=== PATIENT | female | born 1965 | race Caucasian/White ===

== ENCOUNTER 2019-03-07 22:23 | Inpatient (IN) ==
[2019-03-08] MEDS ORDERED: Naloxone 0.4 MG/ML INJ IVP PRN (04:27)
[2019-03-08] MEDS ORDERED: Melatonin 3 MG TABLET PO PRN (04:27)
[2019-03-08 06:13] LABS: Hematocrit 37.1 % (35.3-44.9); Hemoglobin 12.3 g/dL (11.5-15.4); Mean Corpuscular HGB Conc 33.2 g/dL (31.6-35.5); Mean Corpuscular Hemoglobin 29.9 pg (28.0-33.3); Mean Platelet Volume 10.1 fL (9.4-12.4); Platelet Count 281 K/mcL (140-400); Red Blood Count 4.12 M/mcL (3.82-4.97); Red Cell Distribution Width 13.6 % (11.5-14.5); White Blood Count 6.5 K/mcL (4.3-11.1)
[2019-03-08 06:38] LABS: BUN/Creatinine Ratio 22 (6-26); Blood Urea Nitrogen 15 mg/dL (6-20); Calcium 8.8 mg/dL (8.6-10.3); Carbon Dioxide 27 mEq/L (23-29); Chloride 105 mEq/L (98-107); Glucose 105 mg/dL (70-105); Osmolality,Calculated 299 (280-300); Potassium 3.5 mEq/L (3.5-5.1); Sodium 144 mEq/L (136-145); eGFR For African Americans > 60 (> 60); eGFR For Non-African Americans > 60 (> 60)
[2019-03-08 06:39] LABS: Troponin I < 0.03 ng/mL (< 0.04)
[2019-03-08] MEDS: *HR* Rivaroxaban 10 MG TABLET PO SCH (12:07)
[2019-03-08] MEDS: *HR* LORazepam 1 MG TABLET PO PRN (12:09)
[2019-03-08 16:50] LABS: Adenovirus Not Detected (Not Detect); Bordetella Pertussis Not Detected (Not Detect); Chlamydophila pneumoniae Not Detected (Not Detect); Coronavirus 229E Not Detected (Not Detect); Coronavirus HKU1 Not Detected (Not Detect); Coronavirus NL63 Not Detected (Not Detect); Coronavirus OC43 Not Detected (Not Detect); Human Metapneumovirus Not Detected (Not Detect); Human Rhinovirus/Enterovirus Not Detected (Not Detect); Influenza A Subtype 2009 H1 Not Detected (Not Detect); Influenza B Not Detected (Not Detect); Mycoplasma pneumoniae Not Detected (Not Detect); Parainfluenza Virus 1 Not Detected (Not Detect); Parainfluenza Virus 2 Not Detected (Not Detect); Parainfluenza Virus 3 Not Detected (Not Detect); Parainfluenza Virus 4 Not Detected (Not Detect); Respiratory Syncytial Virus Not Detected (Not Detect)
[2019-03-08] MEDS ORDERED: *HR* Rivaroxaban 10 MG TABLET PO SCH ×2 (17:00)
[2019-03-08] MEDS ORDERED: Acetaminophen 325 MG TABLET PO ONE (21:50)
[2019-03-08] MEDS: Melatonin 3 MG TABLET PO SCH (22:01)
[2019-03-09 05:56] LABS: BUN/Creatinine Ratio 35 (6-26); Blood Urea Nitrogen 19 mg/dL (6-20); Calcium 8.6 mg/dL (8.6-10.3); Carbon Dioxide 21 mEq/L (23-29); Chloride 108 mEq/L (98-107); Glucose 94 mg/dL (70-105); Magnesium 2.1 mg/dL (1.6-2.6); Osmolality,Calculated 288 (280-300); Potassium 3.7 mEq/L (3.5-5.1); Sodium 138 mEq/L (136-145); eGFR For African Americans > 60 (> 60); eGFR For Non-African Americans > 60 (> 60)
[2019-03-09] MEDS ORDERED: Regadenoson 0.4 MG/5 ML SYRINGE IVP ONE (06:21)
[2019-03-09] MEDS ORDERED: NON-FORMULARY MEDICATION 1 EACH EACH (Rivaroxaban [Xarelto] 20 MG) PO SCH (09:00)
[2019-03-09] MEDS: *HR* Rivaroxaban 10 MG TABLET PO SCH ×2 (10:07→17:22)
[2019-03-09] MEDS: Acetaminophen 325 MG TABLET PO PRN (15:27)
[2019-03-09] MEDS: Lisinopril 20 MG TABLET PO SCH (17:22)
[2019-03-09] MEDS: carvediloL 6.25 MG TABLET PO SCH (17:22)
[2019-03-09] MEDS: *HR* LORazepam 1 MG TABLET PO PRN (22:40)
[2019-03-09] MEDS: Melatonin 3 MG TABLET PO SCH (22:41)
[2019-03-10] MEDS: carvediloL 6.25 MG TABLET PO SCH ×2 (08:03→16:20)
[2019-03-10] MEDS: amLODIPine 5 MG TABLET PO SCH (09:15)
[2019-03-10] MEDS ORDERED: hydrOXYzine pamoate 25 MG CAPSULE PO PRN (11:01)
[2019-03-10] MEDS: *HR* Rivaroxaban 10 MG TABLET PO SCH (16:20)
[2019-03-10] MEDS: Lisinopril 20 MG TABLET PO SCH (18:34)
[2019-03-10] MEDS: Melatonin 3 MG TABLET PO SCH (22:32)
[2019-03-11 01:27] LABS: Hematocrit 34.2 % (35.3-44.9); Hemoglobin 11.2 g/dL (11.5-15.4); Mean Corpuscular HGB Conc 32.7 g/dL (31.6-35.5); Mean Corpuscular Hemoglobin 29.8 pg (28.0-33.3); Mean Platelet Volume 10.8 fL (9.4-12.4); Platelet Count 245 K/mcL (140-400); Red Blood Count 3.76 M/mcL (3.82-4.97); Red Cell Distribution Width 13.2 % (11.5-14.5); White Blood Count 8.4 K/mcL (4.3-11.1)
[2019-03-11 01:42] LABS: BUN/Creatinine Ratio 21 (6-26); Blood Urea Nitrogen 13 mg/dL (6-20); Calcium 8.8 mg/dL (8.6-10.3); Carbon Dioxide 25 mEq/L (23-29); Chloride 107 mEq/L (98-107); Glucose 88 mg/dL (70-105); Osmolality,Calculated 286 (280-300); Potassium 3.7 mEq/L (3.5-5.1); Sodium 138 mEq/L (136-145); eGFR For African Americans > 60 (> 60); eGFR For Non-African Americans > 60 (> 60)
[2019-03-11] MEDS: carvediloL 6.25 MG TABLET PO SCH (08:20)
[2019-03-11] MEDS: amLODIPine 5 MG TABLET PO SCH (08:20)
[2019-03-11] MEDS: Acetaminophen 325 MG TABLET PO PRN (08:23)
[2019-03-11 10:28] VITALS: BP 140/61
== END 2019-03-11 12:04 | disposition home or self-care (01) | DRG 310 ==
LOC: 2ANU → SUATTDRO 03-08 01:15
PROVIDERS: ADMIT Family Medicine; ATTEND Internal Medicine

== ENCOUNTER 2019-11-09 00:48 | Observation (INO) ==
[2019-11-09] MEDS ORDERED: *HR* Heparin 5,000 UNIT/ML VIAL IVP ONE (01:18)
[2019-11-09] MEDS ORDERED: Aspirin 81 MG TAB.CHEW PO ONE (01:18)
[2019-11-09] MEDS ORDERED: *HR* Heparin 5,000 UNIT/ML VIAL IVP PRN ×2 (01:18)
[2019-11-09] MEDS ORDERED: Heparin 25,000UNIT/250ML 1/2NS 25,000 UNIT/250 ML IV.SOLN IVC SCH ×2 (01:30→02:15)
[2019-11-09] MEDS ORDERED: DilTIAZem 50 MG/50 ML IV.SOLN IVC SCH (01:30)
[2019-11-09] MEDS ORDERED: Isovue-370 500 ML BOTTLE IVP ONE (01:38)
[2019-11-09 01:59] LABS: Eosinophils # 0.2 K/mcL (0.0-0.6); Hematocrit 36.1 % (35.3-44.9); Hemoglobin 11.7 g/dL (11.5-15.4); INR 1.7; Immature Granulocytes % 0.1 % (0-4); Lymphocytes # 1.9 K/mcL (0.6-4.6); Lymphocytes % 24.3 %; Mean Corpuscular HGB Conc 32.4 g/dL (31.6-35.5); Mean Corpuscular Volume 89.4 fL (83.0-100.0); Monocytes # 0.5 K/mcL (0.0-1.3); Monocytes % 6.8 %; Neutrophils # 5.3 K/mcL (1.6-8.9); Platelet Count 260 K/mcL (140-400); Prothrombin Time 19.5 Seconds (9.4-12.1); Red Blood Count 4.04 M/mcL (3.82-4.97); Red Cell Distribution Width 13.5 % (11.5-14.5); Segmented Neutrophils % 66.8 %
[2019-11-09 02:01] LABS: Activated Partial Thrombo Time 76.4 Seconds (26.0-36.0)
[2019-11-09 02:06] LABS: Heparin anti-factor XA UFH 1.39 IU/mL (0.30-0.70)
[2019-11-09 02:13] LABS: Alanine Aminotransferase 15 Units/L (7-52); Albumin 4.1 g/dL (3.5-5.7); Albumin/Globulin Ratio 1.4 (1.1-2.2); Alkaline Phosphatase 114 Units/L (34-104); Aspartate Amino Transferase 14 Units/L (13-39); BUN/Creatinine Ratio 23 (6-26); Bilirubin,Direct 0.1 mg/dL (0.0-0.2); Bilirubin,Indirect 0.4 mg/dL (0.0-1.0); Bilirubin,Total 0.5 mg/dL (0.3-1.0); Blood Urea Nitrogen 15 mg/dL (6-20); Carbon Dioxide 26 mEq/L (23-29); Chloride 107 mEq/L (98-107); Globulin 2.9 g/dL (2.4-3.5); Glucose 141 mg/dL (70-105); Lipase 38 Units/L (11-82); Osmolality,Calculated 297 (280-300); Potassium 3.4 mEq/L (3.5-5.1); Sodium 142 mEq/L (136-145); eGFR For African Americans > 60 (> 60); eGFR For Non-African Americans > 60 (> 60)
[2019-11-09 02:14] LABS: Troponin I < 0.03 ng/mL (< 0.04)
[2019-11-09] MEDS ORDERED: Morphine Sulfate 2 MG/ML SYRINGE IVP ONE (02:20)
[2019-11-09] MEDS ORDERED: Ondansetron 4 MG/2 ML VIAL IVP PRN (03:53)
[2019-11-09] MEDS ORDERED: Naloxone 0.4 MG/ML INJ IVP PRN (03:53)
[2019-11-09] MEDS ORDERED: Perflutren Lipid Microsphere 1.3 ML in 0.9 % Sodium Chloride 8.7 ML IVP PRN (08:20)
[2019-11-09] MEDS: Pantoprazole 40 MG VIAL IVP SCH (08:39)
[2019-11-09] MEDS: hydroCHLOROthiazide 25 MG TABLET PO SCH (08:39)
[2019-11-09] MEDS ORDERED: carvediloL 6.25 MG TABLET PO ONE (10:15)
[2019-11-09] MEDS ORDERED: Acetaminophen 325 MG TABLET PO PRN (15:15)
[2019-11-09] MEDS: carvediloL 6.25 MG TABLET PO SCH (16:46)
[2019-11-09] MEDS ORDERED: carvediloL 6.25 MG TABLET PO SCH (17:00)
[2019-11-09] MEDS ORDERED: lisinopriL 20 MG TABLET PO SCH (18:00)
[2019-11-09] MEDS: *HR* LORazepam 1 MG TABLET PO PRN (18:40)
[2019-11-09] MEDS ORDERED: Melatonin 3 MG TABLET PO ONE (20:47)
[2019-11-10 03:40] LABS: Chol/HDL Ratio 2.7 (0-4.9)
[2019-11-10] MEDS: *HR* LORazepam 1 MG TABLET PO PRN (07:11)
[2019-11-10] MEDS: hydroCHLOROthiazide 25 MG TABLET PO SCH (07:47)
[2019-11-10] MEDS: Pantoprazole 40 MG VIAL IVP SCH (07:48)
[2019-11-10] MEDS: carvediloL 6.25 MG TABLET PO SCH ×2 (07:48→15:52)
[2019-11-10 08:51] LABS: Estimated Average Glucose 114 mg/dl
[2019-11-10] MEDS: amLODIPine 5 MG TABLET PO SCH ×2 (08:59→09:49)
[2019-11-10 09:04] LABS: BUN/Creatinine Ratio 19 (6-26); Blood Urea Nitrogen 13 mg/dL (6-20); Calcium 8.7 mg/dL (8.6-10.3); Carbon Dioxide 27 mEq/L (23-29); Chloride 105 mEq/L (98-107); Glucose 106 mg/dL (70-105); Osmolality,Calculated 289 (280-300); Potassium 3.7 mEq/L (3.5-5.1); Sodium 139 mEq/L (136-145); eGFR For African Americans > 60 (> 60); eGFR For Non-African Americans > 60 (> 60)
[2019-11-10] MEDS ORDERED: 0.9 % Sodium Chloride 2,000 ML ONE (11:33)
[2019-11-10] MEDS ORDERED: Heparin 1,000 UNITS/500 mL 500 ML ONE (11:33)
[2019-11-10] MEDS ORDERED: ISOVUE-370 200 ML INFUS..BTL ONE (11:34)
[2019-11-10] MEDS ORDERED: Nitroglycerin 1,000 MCG/10 ML VIAL IV ONE (11:34)
[2019-11-10] MEDS ORDERED: *HR* Heparin 10,000 UNIT/10 ML VIAL ONE (11:34)
[2019-11-10] MEDS ORDERED: *HR* Midazolam HCl 2 MG/2 ML VIAL ONE ×2 (12:00→12:14)
[2019-11-10] MEDS ORDERED: *HR* FentaNYL (PF) 100 MCG/2 ML VIAL ONE (12:00)
[2019-11-10] MEDS ORDERED: Perflutren Lipid Microsphere 1.3 ML in 0.9 % Sodium Chloride 8.7 ML IVP PRN (12:43)
[2019-11-10 14:52] VITALS: BP 138/79
[2019-11-10] MEDS ORDERED: Furosemide 20 MG/2 ML VIAL IVP ONE (15:21)
[2019-11-10] MEDS ORDERED: *HR* Rivaroxaban 10 MG TABLET PO SCH (17:00)
[2019-11-11] MEDS ORDERED: Aspirin 81 MG TAB.CHEW PO SCH (09:00)
== END 2019-11-10 16:43 | disposition home or self-care (01) ==
LOC: EMEROOARM 00:48 → 3BNU 00:48 → SUATTDRO 03:23 → 3BNU 03:47
PROVIDERS: ADMIT Internal Medicine; ATTEND Internal Medicine

== ENCOUNTER 2020-01-23 07:18 | Observation (INO) ==
[2020-01-23] MEDS ORDERED: 0.9 % Sodium Chloride 1,000 ML IVC SCH (07:45)
[2020-01-23] MEDS ORDERED: Protamine Sulfate 50 MG/5 ML VIAL IVP ONE (08:21)
[2020-01-23] MEDS ORDERED: ISOVUE-370 200 ML INFUS..BTL ONE (08:22)
[2020-01-23] MEDS ORDERED: *HR* Heparin 10,000 UNIT/10 ML VIAL ONE (08:22)
[2020-01-23] MEDS ORDERED: Heparin 1,000 UNITS/500 mL 2,000 ML ONE (08:22)
[2020-01-23] MEDS ORDERED: 0.9 % Sodium Chloride 2,000 ML ONE (08:22)
[2020-01-23] MEDS ORDERED: Albuterol 2.5 MG/3 ML NEBULIZER IH PRN (08:26)
[2020-01-23] MEDS ORDERED: *HR* OxyCODONE Immed Rel 5 MG TABLET PO PRN (08:26)
[2020-01-23] MEDS ORDERED: Promethazine 6.25 MG in Water for inj. (sterile) 20 ML IVPB PRN (08:26)
[2020-01-23] MEDS ORDERED: *HR* Metoprolol 5 MG/5 ML VIAL IVP PRN (08:26)
[2020-01-23] MEDS ORDERED: *HR* FentaNYL (PF) 100 MCG/2 ML VIAL IVP PRN (08:26)
[2020-01-23] MEDS ORDERED: Ondansetron 4 MG/2 ML VIAL IVP PRN (08:26)
[2020-01-23] MEDS ORDERED: *HR* Vasopressin 20 UNIT/ML VIAL ONE (08:38)
[2020-01-23] MEDS ORDERED: *HR* FentaNYL (PF) 100 MCG/2 ML VIAL ONE (08:39)
[2020-01-23] MEDS ORDERED: Heparin 1,000 UNITS/500 mL 500 ML ONE (09:29)
[2020-01-23] MEDS ORDERED: Naloxone 0.4 MG/ML INJ IVP PRN (12:26)
[2020-01-23] MEDS ORDERED: *HR* LORazepam 1 MG TABLET PO PRN (12:27)
[2020-01-23] MEDS ORDERED: Lidocaine -MPF 2% 5 ML VIAL SQ ONE (12:40)
[2020-01-23] MEDS ORDERED: Lidocaine -MPF 4% 5 ML AMPUL TP ONE (12:40)
[2020-01-23] MEDS ORDERED: Ondansetron 4 MG/2 ML VIAL IVP ONE (12:40)
[2020-01-23] MEDS ORDERED: *HR* Succinylcholine 200 MG/10 ML VIAL IVP ONE (12:40)
[2020-01-23] MEDS ORDERED: *HR* Propofol 200 MG/20 ML VIAL IVP ONE (12:40)
[2020-01-23] MEDS ORDERED: *HR* Rocuronium Bromide 50 MG/5 ML VIAL IVP ONE (12:40)
[2020-01-23] MEDS ORDERED: *HR* Phenylephrine 10 MG/ML VIAL IVC ONE (12:40)
[2020-01-23] MEDS: carvediloL 25 MG TABLET PO SCH (16:32)
[2020-01-23] MEDS ORDERED: lisinopriL 20 MG TABLET PO SCH (18:00)
[2020-01-23] MEDS ORDERED: *HR* Rivaroxaban 10 MG TABLET PO SCH (19:00)
[2020-01-24] MEDS: carvediloL 25 MG TABLET PO SCH (07:25)
[2020-01-24] MEDS ORDERED: hydroCHLOROthiazide 25 MG TABLET PO SCH (09:00)
[2020-01-24] MEDS ORDERED: amLODIPine 5 MG TABLET PO SCH (09:00)
[2020-01-24 11:36] VITALS: BP 141/61
== END 2020-01-24 12:41 | disposition home or self-care (01) ==
LOC: INVDIALAB 07:18 → 2NNU 07:18
PROVIDERS: ADMIT Internal Medicine Clinical Cardiac Electrophysiology; ATTEND Internal Medicine Clinical Cardiac Electrophysiology

== ENCOUNTER 2020-01-27 15:42 | Observation (INO) ==
[2020-01-27 16:21] LABS: Basophils % 0.1 %; Eosinophils # 0.5 K/mcL (0.0-0.6); Eosinophils % 4.4 %; Hematocrit 37.7 % (35.3-44.9); Hemoglobin 12.5 g/dL (11.5-15.4); Immature Granulocytes % 0.3 % (0-4); Lymphocytes # 2.2 K/mcL (0.6-4.6); Lymphocytes % 18.8 %; Mean Corpuscular HGB Conc 33.2 g/dL (31.6-35.5); Mean Corpuscular Hemoglobin 28.9 pg (28.0-33.3); Mean Corpuscular Volume 87.3 fL (83.0-100.0); Mean Platelet Volume 10.3 fL (9.4-12.4); Monocytes # 0.8 K/mcL (0.0-1.3); Monocytes % 6.7 %; Neutrophils # 8.1 K/mcL (1.6-8.9); Platelet Count 347 K/mcL (140-400); Red Blood Count 4.32 M/mcL (3.82-4.97); Red Cell Distribution Width 13.4 % (11.5-14.5); Segmented Neutrophils % 69.7 %; White Blood Count 11.6 K/mcL (4.3-11.1)
[2020-01-27 16:28] LABS: INR 1.5; Prothrombin Time 17.5 Seconds (9.4-12.1)
[2020-01-27 16:41] LABS: BUN/Creatinine Ratio 19 (6-26); Blood Urea Nitrogen 13 mg/dL (6-20); Calcium 9.4 mg/dL (8.6-10.3); Carbon Dioxide 27 mEq/L (23-29); Chloride 102 mEq/L (98-107); Glucose 116 mg/dL (70-105); Osmolality,Calculated 289 (280-300); Potassium 3.7 mEq/L (3.5-5.1); Sodium 139 mEq/L (136-145); eGFR For African Americans > 60 (> 60); eGFR For Non-African Americans > 60 (> 60)
[2020-01-27 16:43] LABS: Troponin I 0.34 ng/mL (< 0.04)
[2020-01-27] MEDS ORDERED: *HR* Heparin 5,000 UNIT/ML VIAL IVP ONE (16:44)
[2020-01-27] MEDS ORDERED: *HR* Heparin 5,000 UNIT/ML VIAL IVP PRN ×2 (16:44)
[2020-01-27] MEDS ORDERED: Heparin 25,000UNIT/250ML 1/2NS 25,000 UNIT/250 ML IV.SOLN IVC SCH (16:45)
[2020-01-27] MEDS: DilTIAZem 50 MG/50 ML IV.SOLN IVC SCH ×2 (16:48→22:42)
[2020-01-27] MEDS ORDERED: *HR* Metoprolol 5 MG/5 ML VIAL IVP ONE (17:13)
[2020-01-27] MEDS ORDERED: Naloxone 0.4 MG/ML INJ IVP PRN (17:15)
[2020-01-27] MEDS ORDERED: Aspirin 325 MG TABLET PO ONE (17:20)
[2020-01-27] MEDS ORDERED: *HR* LORazepam 2 MG/ML VIAL IVP ONE (18:17)
[2020-01-27] MEDS: *HR* Rivaroxaban 10 MG TABLET PO SCH (20:22)
[2020-01-27] MEDS: *HR* LORazepam 1 MG TABLET PO PRN (20:29)
[2020-01-27 22:51] LABS: Troponin I 0.3 ng/mL (< 0.04)
[2020-01-27 22:57] LABS: Thyroid Stimulating Hormone 2.143 mcIU/mL (0.340-5.600)
[2020-01-28] MEDS: DilTIAZem 50 MG/50 ML IV.SOLN IVC SCH (03:33)
[2020-01-28] MEDS: Melatonin 3 MG TABLET PO PRN ×2 (03:33→23:42)
[2020-01-28 05:03] LABS: Basophils % 0.2 %; Eosinophils # 0.5 K/mcL (0.0-0.6); Eosinophils % 4.6 %; Hematocrit 37.5 % (35.3-44.9); Hemoglobin 12.3 g/dL (11.5-15.4); Immature Granulocytes % 0.3 % (0-4); Lymphocytes # 2.5 K/mcL (0.6-4.6); Mean Corpuscular HGB Conc 32.8 g/dL (31.6-35.5); Mean Corpuscular Hemoglobin 29.1 pg (28.0-33.3); Mean Corpuscular Volume 88.7 fL (83.0-100.0); Mean Platelet Volume 10.3 fL (9.4-12.4); Monocytes # 0.8 K/mcL (0.0-1.3); Monocytes % 6.9 %; Neutrophils # 7.1 K/mcL (1.6-8.9); Platelet Count 319 K/mcL (140-400); Red Blood Count 4.23 M/mcL (3.82-4.97); Red Cell Distribution Width 13.6 % (11.5-14.5); White Blood Count 10.9 K/mcL (4.3-11.1)
[2020-01-28 05:18] LABS: INR 3.1; Prothrombin Time 34.6 Seconds (9.4-12.1)
[2020-01-28 05:21] LABS: BUN/Creatinine Ratio 18 (6-26); Blood Urea Nitrogen 11 mg/dL (6-20); Calcium 8.8 mg/dL (8.6-10.3); Carbon Dioxide 26 mEq/L (23-29); Chloride 105 mEq/L (98-107); Glucose 114 mg/dL (70-105); Magnesium 1.8 mg/dL (1.6-2.6); Osmolality,Calculated 288 (280-300); Phosphorous 3.7 mg/dL (2.7-4.5); Potassium 3.8 mEq/L (3.5-5.1); Sodium 139 mEq/L (136-145); eGFR For African Americans > 60 (> 60); eGFR For Non-African Americans > 60 (> 60)
[2020-01-28] MEDS: Zinc Sulfate 220 MG CAPSULE PO SCH (09:00)
[2020-01-28] MEDS: carvediloL 25 MG TABLET PO SCH ×2 (09:00→16:44)
[2020-01-28] MEDS ORDERED: *HR* LORazepam 1 MG TABLET PO ONE (10:15)
[2020-01-28] MEDS ORDERED: DilTIAZem CD (24hr) 120 MG CAP.ER.24H PO SCH (13:30)
[2020-01-28] MEDS: *HR* Rivaroxaban 10 MG TABLET PO SCH (16:44)
[2020-01-28] MEDS ORDERED: lisinopriL 20 MG TABLET PO SCH (19:00)
[2020-01-28] MEDS: *HR* LORazepam 1 MG TABLET PO PRN (23:38)
[2020-01-29 02:13] LABS: Basophils % 0.2 %; Eosinophils # 0.5 K/mcL (0.0-0.6); Eosinophils % 5.2 %; Hematocrit 37.2 % (35.3-44.9); Hemoglobin 11.8 g/dL (11.5-15.4); Immature Granulocytes % 0.3 % (0-4); Lymphocytes # 2.8 K/mcL (0.6-4.6); Lymphocytes % 28.1 %; Mean Corpuscular HGB Conc 31.7 g/dL (31.6-35.5); Mean Corpuscular Hemoglobin 28.3 pg (28.0-33.3); Mean Corpuscular Volume 89.2 fL (83.0-100.0); Mean Platelet Volume 10.3 fL (9.4-12.4); Monocytes # 0.8 K/mcL (0.0-1.3); Monocytes % 7.9 %; Neutrophils # 5.7 K/mcL (1.6-8.9); Platelet Count 311 K/mcL (140-400); Red Blood Count 4.17 M/mcL (3.82-4.97); Red Cell Distribution Width 13.8 % (11.5-14.5); Segmented Neutrophils % 58.3 %; White Blood Count 9.8 K/mcL (4.3-11.1)
[2020-01-29 02:33] LABS: BUN/Creatinine Ratio 24 (6-26); Blood Urea Nitrogen 18 mg/dL (6-20); Calcium 8.8 mg/dL (8.6-10.3); Carbon Dioxide 28 mEq/L (23-29); Chloride 107 mEq/L (98-107); Glucose 142 mg/dL (70-105); Osmolality,Calculated 294 (280-300); Sodium 140 mEq/L (136-145); eGFR For African Americans > 60 (> 60); eGFR For Non-African Americans > 60 (> 60)
[2020-01-29] MEDS: carvediloL 25 MG TABLET PO SCH (05:39)
[2020-01-29] MEDS ORDERED: amLODIPine 5 MG TABLET PO SCH (07:00)
[2020-01-29] MEDS ORDERED: hydroCHLOROthiazide 25 MG TABLET PO SCH (07:00)
[2020-01-29] MEDS: Zinc Sulfate 220 MG CAPSULE PO SCH (07:45)
[2020-01-29] MEDS ORDERED: DilTIAZem CD (24hr) 180 MG CAP.ER.24H PO SCH (09:00)
[2020-01-29 10:28] VITALS: BP 104/69
== END 2020-01-29 13:23 | disposition home or self-care (01) ==
LOC: EMEROOARM 15:42 → 2ANU 15:42 → SUATTDRO 17:46 → 2ANU 18:42
PROVIDERS: ADMIT Student in an Organized Health Care Education/Training Program; ATTEND Student in an Organized Health Care Education/Training Program

== ENCOUNTER 2020-02-13 10:39 | Observation (INO) ==
[2020-02-13] MEDS ORDERED: *HR* Atropine Sulfate 1 MG/10 ML SYRINGE ONE (11:07)
[2020-02-13] MEDS ORDERED: Calcium Gluconate 2,000 MG in D5% in Water 100 ML IVPB ONE (11:12)
[2020-02-13] MEDS ORDERED: 0.9 % Sodium Chloride 1,000 ML IVC ONE (11:12)
[2020-02-13] MEDS ORDERED: *HR* Atropine Sulfate 1 MG/10 ML SYRINGE IVP STA (11:12)
[2020-02-13 11:30] LABS: Hemoglobin 11.2 g/dL (11.5-15.4); Immature Granulocytes % 0.3 % (0-4); Mean Corpuscular HGB Conc 31.1 g/dL (31.6-35.5); Mean Corpuscular Hemoglobin 28.2 pg (28.0-33.3); Mean Corpuscular Volume 90.7 fL (83.0-100.0); Mean Platelet Volume 9.7 fL (9.4-12.4); Monocytes % 6.5 %; Platelet Count 271 K/mcL (140-400); Red Blood Count 3.97 M/mcL (3.82-4.97); Red Cell Distribution Width 13.5 % (11.5-14.5); Segmented Neutrophils % 74.3 %; White Blood Count 8.9 K/mcL (4.3-11.1)
[2020-02-13 11:31] LABS: Basophils % 0.1 %; Eosinophils # 0.3 K/mcL (0.0-0.6); Eosinophils % 2.8 %; Lymphocytes # 1.4 K/mcL (0.6-4.6); Monocytes # 0.6 K/mcL (0.0-1.3); Neutrophils # 6.6 K/mcL (1.6-8.9)
[2020-02-13 11:48] LABS: BUN/Creatinine Ratio 16 (6-26); Blood Urea Nitrogen 12 mg/dL (6-20); Carbon Dioxide 23 mEq/L (23-29); Chloride 108 mEq/L (98-107); Glucose 119 mg/dL (70-105); Osmolality,Calculated 291 (280-300); Potassium 4.1 mEq/L (3.5-5.1); Sodium 140 mEq/L (136-145); Troponin I 0.03 ng/mL (< 0.04); eGFR For African Americans > 60 (> 60); eGFR For Non-African Americans > 60 (> 60)
[2020-02-13 12:01] LABS: Thyroid Stimulating Hormone 3.579 mcIU/mL (0.340-5.600)
[2020-02-13] MEDS ORDERED: Ondansetron 4 MG/2 ML VIAL IVP PRN (13:26)
[2020-02-13] MEDS ORDERED: Naloxone 0.4 MG/ML INJ IVP PRN (13:26)
[2020-02-13] MEDS ORDERED: Acetaminophen 325 MG TABLET PO PRN (13:26)
[2020-02-13] MEDS: *HR* Rivaroxaban 10 MG TABLET PO SCH (18:24)
[2020-02-13] MEDS: *HR* LORazepam 1 MG TABLET PO PRN (21:22)
[2020-02-13] MEDS: Melatonin 3 MG TABLET PO PRN (22:01)
[2020-02-14 06:27] LABS: Hemoglobin 10.1 g/dL (11.5-15.4); Mean Corpuscular HGB Conc 31.6 g/dL (31.6-35.5); Mean Corpuscular Volume 88.6 fL (83.0-100.0); Mean Platelet Volume 9.8 fL (9.4-12.4); Platelet Count 225 K/mcL (140-400); Red Blood Count 3.61 M/mcL (3.82-4.97); Red Cell Distribution Width 13.2 % (11.5-14.5); White Blood Count 6.4 K/mcL (4.3-11.1)
[2020-02-14 06:43] LABS: BUN/Creatinine Ratio 17 (6-26); Blood Urea Nitrogen 11 mg/dL (6-20); Calcium 8.9 mg/dL (8.6-10.3); Carbon Dioxide 26 mEq/L (23-29); Chloride 105 mEq/L (98-107); Glucose 103 mg/dL (70-105); Magnesium 1.9 mg/dL (1.6-2.6); Osmolality,Calculated 288 (280-300); Potassium 3.6 mEq/L (3.5-5.1); Sodium 139 mEq/L (136-145); eGFR For African Americans > 60 (> 60); eGFR For Non-African Americans > 60 (> 60)
[2020-02-14] MEDS: hydroCHLOROthiazide 25 MG TABLET PO SCH (08:14)
[2020-02-14] MEDS ORDERED: Perflutren Lipid Microsphere 1.3 ML in 0.9 % Sodium Chloride 8.7 ML IVP PRN (10:07)
[2020-02-14] MEDS: *HR* Rivaroxaban 10 MG TABLET PO SCH (18:25)
[2020-02-14] MEDS: *HR* LORazepam 1 MG TABLET PO PRN (20:55)
[2020-02-14] MEDS: Melatonin 3 MG TABLET PO PRN (20:56)
[2020-02-15 06:13] LABS: Eosinophils # 0.2 K/mcL (0.0-0.6); Eosinophils % 3.7 %; Hematocrit 34.3 % (35.3-44.9); Hemoglobin 10.9 g/dL (11.5-15.4); Immature Granulocytes % 0.2 % (0-4); Lymphocytes # 1.6 K/mcL (0.6-4.6); Lymphocytes % 28.7 %; Mean Corpuscular HGB Conc 31.8 g/dL (31.6-35.5); Mean Corpuscular Hemoglobin 28.5 pg (28.0-33.3); Mean Corpuscular Volume 89.8 fL (83.0-100.0); Mean Platelet Volume 9.6 fL (9.4-12.4); Monocytes # 0.4 K/mcL (0.0-1.3); Monocytes % 7.2 %; Neutrophils # 3.3 K/mcL (1.6-8.9); Platelet Count 233 K/mcL (140-400); Red Blood Count 3.82 M/mcL (3.82-4.97); Red Cell Distribution Width 13.2 % (11.5-14.5); Segmented Neutrophils % 60.2 %; White Blood Count 5.4 K/mcL (4.3-11.1)
[2020-02-15 06:47] LABS: % Iron Saturation 13 % (15-50); Iron 47 mcg/dL (50-170); Transferrin 258 mg/dL (203-362)
[2020-02-15 06:50] LABS: Ferritin 29 ng/mL (10-120)
[2020-02-15 06:56] LABS: Folate > 22.3 ng/mL (3.0-16.0); Vitamin B12 619 pg/mL (250-1100)
[2020-02-15] MEDS: hydroCHLOROthiazide 25 MG TABLET PO SCH (08:08)
[2020-02-15] MEDS ORDERED: lisinopriL 5 MG TABLET PO SCH (09:00)
[2020-02-15] MEDS ORDERED: lisinopriL 5 MG TABLET PO ONE (11:29)
[2020-02-15 13:25] VITALS: BP 181/72
[2020-02-16] MEDS ORDERED: lisinopriL 10 MG TABLET PO SCH (09:00)
[2020-02-16] MEDS ORDERED: lisinopriL 10 MG TABLET PO ONE (13:23)
== END 2020-02-15 14:12 | disposition home or self-care (01) ==
LOC: 3BNU 10:39 → EMEROOARM 10:39 → SUATTDRO 13:36 → 3BNU 15:12
PROVIDERS: ADMIT Internal Medicine; ATTEND Internal Medicine

== ENCOUNTER 2020-02-20 14:17 | Inpatient (IN) ==
[2020-02-20] MEDS ORDERED: 0.9 % Sodium Chloride 1,000 ML IVC ONE ×2 (14:49→17:11)
[2020-02-20] MEDS: DilTIAZem 50 MG/50 ML IV.SOLN IVC SCH ×2 (15:13→20:41)
[2020-02-20 15:19] LABS: INR 2.3
[2020-02-20 15:22] LABS: Activated Partial Thrombo Time 75.2 Seconds (26.0-36.0)
[2020-02-20 15:47] LABS: Troponin I 0.13 ng/mL (< 0.04)
[2020-02-20 15:53] LABS: BUN/Creatinine Ratio 17 (6-26); Blood Urea Nitrogen 13 mg/dL (6-20); Calcium 9.8 mg/dL (8.6-10.3); Carbon Dioxide 24 mEq/L (23-29); Chloride 103 mEq/L (98-107); Glucose 115 mg/dL (70-105); Osmolality,Calculated 289 (280-300); Potassium 3.8 mEq/L (3.5-5.1); Sodium 139 mEq/L (136-145); eGFR For African Americans > 60 (> 60); eGFR For Non-African Americans > 60 (> 60)
[2020-02-20 15:58] LABS: Thyroid Stimulating Hormone 2.378 mcIU/mL (0.340-5.600)
[2020-02-20 16:18] LABS: Basophils % 0.1 %; Eosinophils # 0.1 K/mcL (0.0-0.6); Eosinophils % 0.8 %; Hemoglobin 12.3 g/dL (11.5-15.4); Immature Granulocytes % 0.3 % (0-4); Lymphocytes % 25.7 %; Mean Corpuscular HGB Conc 31.5 g/dL (31.6-35.5); Mean Corpuscular Hemoglobin 28.4 pg (28.0-33.3); Mean Corpuscular Volume 90.1 fL (83.0-100.0); Mean Platelet Volume 9.9 fL (9.4-12.4); Monocytes # 0.6 K/mcL (0.0-1.3); Platelet Count 290 K/mcL (140-400); Red Blood Count 4.33 M/mcL (3.82-4.97); Red Cell Distribution Width 13.8 % (11.5-14.5); Segmented Neutrophils % 65.1 %; White Blood Count 7.6 K/mcL (4.3-11.1)
[2020-02-20 16:25] LABS: Influenza A PCR Negative (Negative); Influenza B PCR Negative (Negative); Resp. Syncytial Virus PCR Negative (Negative)
[2020-02-20 17:03] LABS: SARS-CoV-2 by PCR (In House) Negative (Negative)
[2020-02-20] MEDS ORDERED: lisinopriL 20 MG TABLET PO ONE (17:39)
[2020-02-20] MEDS ORDERED: Naloxone 0.4 MG/ML INJ IVP PRN (17:46)
[2020-02-20] MEDS: *HR* LORazepam 1 MG TABLET PO PRN (20:40)
[2020-02-20] MEDS: *HR* Rivaroxaban 10 MG TABLET PO SCH (20:41)
[2020-02-20] MEDS ORDERED: Acetaminophen 325 MG TABLET PO PRN (21:07)
[2020-02-21] MEDS: Melatonin 3 MG TABLET PO SCH ×2 (00:07→20:26)
[2020-02-21] MEDS: DilTIAZem 50 MG/50 ML IV.SOLN IVC SCH ×3 (00:45→08:38)
[2020-02-21] MEDS: Ondansetron 4 MG/2 ML VIAL IVP PRN (01:31)
[2020-02-21 01:53] LABS: Basophils % 0.1 %; Eosinophils # 0.1 K/mcL (0.0-0.6); Eosinophils % 0.9 %; Hematocrit 39.5 % (35.3-44.9); Hemoglobin 12.5 g/dL (11.5-15.4); Immature Granulocytes % 0.3 % (0-4); Lymphocytes # 3.8 K/mcL (0.6-4.6); Lymphocytes % 32.3 %; Mean Corpuscular HGB Conc 31.6 g/dL (31.6-35.5); Mean Corpuscular Hemoglobin 28.6 pg (28.0-33.3); Mean Corpuscular Volume 90.4 fL (83.0-100.0); Mean Platelet Volume 10.2 fL (9.4-12.4); Monocytes % 8.1 %; Neutrophils # 6.9 K/mcL (1.6-8.9); Platelet Count 328 K/mcL (140-400); Red Blood Count 4.37 M/mcL (3.82-4.97); Red Cell Distribution Width 14.1 % (11.5-14.5); Segmented Neutrophils % 58.3 %
[2020-02-21 02:10] LABS: BUN/Creatinine Ratio 16 (6-26); Blood Urea Nitrogen 12 mg/dL (6-20); Calcium 8.8 mg/dL (8.6-10.3); Carbon Dioxide 19 mEq/L (23-29); Chloride 108 mEq/L (98-107); Glucose 130 mg/dL (70-105); Osmolality,Calculated 290 (280-300); Phosphorous 3.2 mg/dL (2.7-4.5); Potassium 3.8 mEq/L (3.5-5.1); Sodium 139 mEq/L (136-145); White Blood Count 11.8 K/mcL (4.3-11.1); eGFR For African Americans > 60 (> 60); eGFR For Non-African Americans > 60 (> 60)
[2020-02-21 07:59] LABS: Alanine Aminotransferase 19 Units/L (7-52); Alkaline Phosphatase 111 Units/L (34-104); Aspartate Amino Transferase 18 Units/L (13-39); Bilirubin,Direct 0.2 mg/dL (0.0-0.2)
[2020-02-21 08:56] LABS: Albumin/Globulin Ratio 1.4 (1.1-2.2); Bilirubin,Indirect 0.6 mg/dL (0.0-1.0); Bilirubin,Total 0.8 mg/dL (0.3-1.0); Globulin 2.9 g/dL (2.4-3.5); Total Protein 6.9 g/dL (6.4-8.9)
[2020-02-21] MEDS ORDERED: Cholecalciferol (D-3) 1,000 UNIT (25MCG) TABLET PO SCH (09:00)
[2020-02-21] MEDS ORDERED: NON-FORMULARY MEDICATION 1 EACH EACH (Zinc Gluconate [Zinc] 50 MG) PO SCH (09:00)
[2020-02-21] MEDS: DilTIAZem CD (24hr) 120 MG CAP.ER.24H PO SCH (13:44)
[2020-02-21] MEDS: *HR* Rivaroxaban 10 MG TABLET PO SCH (18:16)
[2020-02-21] MEDS: *HR* LORazepam 1 MG TABLET PO PRN (20:26)
[2020-02-22 06:23] LABS: Basophils % 0.1 %; Eosinophils # 0.1 K/mcL (0.0-0.6); Eosinophils % 1.6 %; Hematocrit 37.6 % (35.3-44.9); Hemoglobin 12.1 g/dL (11.5-15.4); Immature Granulocytes % 0.1 % (0-4); Lymphocytes # 1.8 K/mcL (0.6-4.6); Lymphocytes % 23.9 %; Mean Corpuscular HGB Conc 32.2 g/dL (31.6-35.5); Mean Corpuscular Hemoglobin 29.9 pg (28.0-33.3); Mean Corpuscular Volume 92.8 fL (83.0-100.0); Monocytes # 0.6 K/mcL (0.0-1.3); Monocytes % 8.6 %; Neutrophils # 4.9 K/mcL (1.6-8.9); Platelet Count 262 K/mcL (140-400); Red Blood Count 4.05 M/mcL (3.82-4.97); Red Cell Distribution Width 14.1 % (11.5-14.5); Segmented Neutrophils % 65.7 %; White Blood Count 7.5 K/mcL (4.3-11.1)
[2020-02-22 06:46] LABS: BUN/Creatinine Ratio 17 (6-26); Blood Urea Nitrogen 15 mg/dL (6-20); Carbon Dioxide 26 mEq/L (23-29); Chloride 108 mEq/L (98-107); Glucose 112 mg/dL (70-105); Magnesium 1.8 mg/dL (1.6-2.6); Osmolality,Calculated 296 (280-300); Phosphorous 3.7 mg/dL (2.7-4.5); Potassium 3.8 mEq/L (3.5-5.1); Sodium 142 mEq/L (136-145); eGFR For African Americans > 60 (> 60); eGFR For Non-African Americans > 60 (> 60)
[2020-02-22] MEDS: Cholecalciferol (D-3) 1,000 UNIT (25MCG) TABLET PO SCH (07:18)
[2020-02-22] MEDS: DilTIAZem CD (24hr) 120 MG CAP.ER.24H PO SCH (07:18)
[2020-02-22] MEDS ORDERED: hydroCHLOROthiazide 25 MG TABLET PO SCH (09:00)
[2020-02-22] MEDS: Ondansetron 4 MG/2 ML VIAL IVP PRN (11:10)
[2020-02-22] MEDS: *HR* Rivaroxaban 10 MG TABLET PO SCH (18:26)
[2020-02-22] MEDS: Melatonin 3 MG TABLET PO SCH (20:16)
[2020-02-22] MEDS: *HR* LORazepam 1 MG TABLET PO PRN (20:21)
[2020-02-23 05:23] LABS: Basophils % 0.1 %; Eosinophils # 0.2 K/mcL (0.0-0.6); Eosinophils % 2.2 %; Hematocrit 37.5 % (35.3-44.9); Hemoglobin 11.6 g/dL (11.5-15.4); Immature Granulocytes % 0.3 % (0-4); Lymphocytes # 1.9 K/mcL (0.6-4.6); Lymphocytes % 27.2 %; Mean Corpuscular HGB Conc 30.9 g/dL (31.6-35.5); Mean Corpuscular Hemoglobin 28.2 pg (28.0-33.3); Mean Corpuscular Volume 91.2 fL (83.0-100.0); Mean Platelet Volume 10.1 fL (9.4-12.4); Monocytes # 0.6 K/mcL (0.0-1.3); Monocytes % 8.4 %; Neutrophils # 4.4 K/mcL (1.6-8.9); Platelet Count 251 K/mcL (140-400); Red Blood Count 4.11 M/mcL (3.82-4.97); Red Cell Distribution Width 14.3 % (11.5-14.5); Segmented Neutrophils % 61.8 %; White Blood Count 7.1 K/mcL (4.3-11.1)
[2020-02-23 05:58] LABS: BUN/Creatinine Ratio 14 (6-26); Blood Urea Nitrogen 12 mg/dL (6-20); Calcium 8.8 mg/dL (8.6-10.3); Carbon Dioxide 26 mEq/L (23-29); Chloride 105 mEq/L (98-107); Glucose 109 mg/dL (70-105); Magnesium 1.8 mg/dL (1.6-2.6); Osmolality,Calculated 290 (280-300); Potassium 3.4 mEq/L (3.5-5.1); Sodium 140 mEq/L (136-145); eGFR For African Americans > 60 (> 60); eGFR For Non-African Americans > 60 (> 60)
[2020-02-23] MEDS: Cholecalciferol (D-3) 1,000 UNIT (25MCG) TABLET PO SCH (08:13)
[2020-02-23] MEDS ORDERED: 0.9 % Sodium Chloride 500 ML IVC ONE (10:38)
[2020-02-23] MEDS: *HR* FentaNYL (PF) 100 MCG/2 ML VIAL IVP PRN ×4 (11:00→11:20)
[2020-02-23] MEDS: *HR* Midazolam HCl 5 MG/5 ML VIAL IVP PRN ×5 (11:00→11:20)
[2020-02-23] MEDS: *HR* Rivaroxaban 10 MG TABLET PO SCH (17:56)
[2020-02-23] MEDS: Melatonin 3 MG TABLET PO SCH (21:34)
[2020-02-23] MEDS: *HR* LORazepam 1 MG TABLET PO PRN (21:34)
[2020-02-23] MEDS ORDERED: Trolamine Salicylate/Aloe Vera 85 APPL/85 GM TUBE TP PRN (21:45)
[2020-02-24] MEDS: DilTIAZem 50 MG/50 ML IV.SOLN IVC SCH (03:10)
[2020-02-24 06:10] LABS: Eosinophils # 0.2 K/mcL (0.0-0.6); Eosinophils % 2.5 %; Hematocrit 37.1 % (35.3-44.9); Hemoglobin 11.4 g/dL (11.5-15.4); Immature Granulocytes % 0.2 % (0-4); Lymphocytes # 1.7 K/mcL (0.6-4.6); Lymphocytes % 21.2 %; Mean Corpuscular HGB Conc 30.7 g/dL (31.6-35.5); Mean Corpuscular Hemoglobin 28.6 pg (28.0-33.3); Mean Platelet Volume 10.1 fL (9.4-12.4); Monocytes # 0.6 K/mcL (0.0-1.3); Monocytes % 7.2 %; Neutrophils # 5.5 K/mcL (1.6-8.9); Platelet Count 255 K/mcL (140-400); Red Blood Count 3.99 M/mcL (3.82-4.97); Red Cell Distribution Width 14.7 % (11.5-14.5); Segmented Neutrophils % 68.9 %
[2020-02-24 06:29] LABS: BUN/Creatinine Ratio 20 (6-26); Blood Urea Nitrogen 15 mg/dL (6-20); Carbon Dioxide 25 mEq/L (23-29); Chloride 107 mEq/L (98-107); Glucose 109 mg/dL (70-105); Magnesium 1.9 mg/dL (1.6-2.6); Osmolality,Calculated 289 (280-300); Potassium 3.8 mEq/L (3.5-5.1); Sodium 139 mEq/L (136-145); eGFR For African Americans > 60 (> 60); eGFR For Non-African Americans > 60 (> 60)
[2020-02-24] MEDS: Cholecalciferol (D-3) 1,000 UNIT (25MCG) TABLET PO SCH (07:59)
[2020-02-24 08:25] VITALS: BP 124/70
[2020-02-25] MEDS ORDERED: DilTIAZem CD (24hr) 120 MG CAP.ER.24H PO SCH (09:00)
== END 2020-02-24 13:40 | disposition home or self-care (01) | DRG 281 ==
LOC: 2ANU 14:17 → EMEROOARM 14:17 → SUATTDRO 18:20 → 2ANU 19:48
PROVIDERS: ADMIT Internal Medicine; ATTEND Pharmacist

== ENCOUNTER 2020-12-26 08:19 | Inpatient (IN) ==
[2020-12-26] MEDS ORDERED: 0.9 % Sodium Chloride 500 ML IVC ONE (08:28)
[2020-12-26] MEDS ORDERED: levoFLOXacin 750 MG/150 ML 750 MG/150 ML BAG IVPB ONE (08:42)
[2020-12-26 09:06] LABS: Basophils # 0.1 K/mcL (0.0-0.2); Basophils % 0.3 %; Eosinophils # 0.1 K/mcL (0.0-0.6); Eosinophils % 0.4 %; Hemoglobin 13.5 g/dL (11.5-15.4); Immature Granulocytes % 0.4 % (0-4); Lymphocytes # 0.8 K/mcL (0.6-4.6); Lymphocytes % 4.3 %; Mean Corpuscular HGB Conc 34.6 g/dL (31.6-35.5); Mean Corpuscular Hemoglobin 32.1 pg (28.0-33.3); Mean Corpuscular Volume 92.6 fL (83.0-100.0); Monocytes # 0.5 K/mcL (0.0-1.3); Monocytes % 2.9 %; Platelet Count 278 K/mcL (140-400); Red Blood Count 4.21 M/mcL (3.82-4.97); Red Cell Distribution Width 12.5 % (11.5-14.5); Segmented Neutrophils % 91.7 %; White Blood Count 18.5 K/mcL (4.3-11.1)
[2020-12-26 09:24] LABS: BUN/Creatinine Ratio 19 (6-26); Blood Urea Nitrogen 13 mg/dL (6-20); Calcium 9.4 mg/dL (8.6-10.3); Carbon Dioxide 29 mEq/L (23-29); Chloride 103 mEq/L (98-107); Glucose 121 mg/dL (70-105); Osmolality,Calculated 291 (280-300); Potassium 3.6 mEq/L (3.5-5.1); Sodium 140 mEq/L (136-145); eGFR For African Americans > 60 (> 60); eGFR For Non-African Americans > 60 (> 60)
[2020-12-26 09:56] LABS: Troponin I < 0.03 ng/mL (< 0.04)
[2020-12-26] MEDS ORDERED: Isovue-370 500 ML BOTTLE IVP ONE (10:15)
[2020-12-26] MEDS ORDERED: Ondansetron 4 MG/2 ML VIAL IVP PRN (12:07)
[2020-12-26] MEDS ORDERED: Azithromycin 500 MG in 0.9 % Sodium Chloride 250 ML IVPB SCH (13:00)
[2020-12-26] MEDS ORDERED: cefTRIAXone 2,000 MG in Water for inj. (sterile) 20 ML IVP SCH (13:00)
[2020-12-26] MEDS: carvediloL 25 MG TABLET PO SCH ×2 (14:06→19:34)
[2020-12-26] MEDS: Doxycycline 100 MG in 0.9 % Sodium Chloride Mini Bag 100 ML IVPB SCH ×2 (14:11→19:34)
[2020-12-26] MEDS: Acetaminophen 325 MG TABLET PO PRN (14:21)
[2020-12-26] MEDS: *HR* LORazepam 1 MG TABLET PO PRN (19:37)
[2020-12-27 05:20] LABS: Hematocrit 37.8 % (35.3-44.9); Hemoglobin 12.6 g/dL (11.5-15.4); Mean Corpuscular HGB Conc 33.3 g/dL (31.6-35.5); Mean Corpuscular Hemoglobin 31.3 pg (28.0-33.3); Platelet Count 241 K/mcL (140-400); Red Blood Count 4.02 M/mcL (3.82-4.97); Red Cell Distribution Width 12.6 % (11.5-14.5)
[2020-12-27 05:21] LABS: White Blood Count 7.3 K/mcL (4.3-11.1)
[2020-12-27 05:39] LABS: BUN/Creatinine Ratio 15 (6-26); Blood Urea Nitrogen 9 mg/dL (6-20); Calcium 8.8 mg/dL (8.6-10.3); Carbon Dioxide 27 mEq/L (23-29); Chloride 105 mEq/L (98-107); Glucose 101 mg/dL (70-105); Osmolality,Calculated 287 (280-300); Potassium 3.2 mEq/L (3.5-5.1); Sodium 139 mEq/L (136-145); eGFR For African Americans > 60 (> 60); eGFR For Non-African Americans > 60 (> 60)
[2020-12-27] MEDS: levoFLOXacin 750 MG/150 ML 750 MG/150 ML BAG IVPB SCH (09:07)
[2020-12-27] MEDS: carvediloL 25 MG TABLET PO SCH ×2 (09:07→17:44)
[2020-12-27] MEDS: Doxycycline 100 MG in 0.9 % Sodium Chloride Mini Bag 100 ML IVPB SCH ×2 (09:08→20:06)
[2020-12-27] MEDS ORDERED: *HR* FentaNYL (PF) 100 MCG/2 ML VIAL ONE (10:56)
[2020-12-27] MEDS ORDERED: *HR* Propofol 200 MG/20 ML VIAL IVP ONE (10:56)
[2020-12-27] MEDS ORDERED: Lidocaine -MPF 2% 5 ML VIAL ONE (11:06)
[2020-12-27] MEDS ORDERED: *HR* Succinylcholine 200 MG/10 ML VIAL IVP ONE (12:35)
[2020-12-27] MEDS ORDERED: Lidocaine -MPF 4% 5 ML AMPUL ONE (12:35)
[2020-12-27] MEDS ORDERED: Perflutren Lipid Microsphere 1.3 ML in 0.9 % Sodium Chloride 8.7 ML IVP PRN (12:58)
[2020-12-27 13:35] LABS: Source of Body Fluid LLL BAL
[2020-12-27 15:52] LABS: Appearance of Body Fluid Clear (Clear); Volume of Body Fluid 22 mL
[2020-12-27] MEDS ORDERED: lisinopriL 20 MG TABLET PO SCH (18:00)
[2020-12-27] MEDS ORDERED: Magnesium Oxide 400 MG TABLET PO SCH (18:00)
[2020-12-27] MEDS ORDERED: Cholecalciferol (D-3) 1,000 UNIT (25MCG) TABLET PO SCH (18:00)
[2020-12-27] MEDS: Acetaminophen 325 MG TABLET PO PRN (20:06)
[2020-12-27] MEDS: Lactobacillus 1 EACH CAP.SPRINK PO SCH (20:06)
[2020-12-27] MEDS ORDERED: Melatonin 3 MG TABLET PO SCH (21:00)
[2020-12-27] MEDS ORDERED: *HR* Rivaroxaban 10 MG TABLET PO SCH (21:00)
[2020-12-28 04:44] LABS: Basophils % 0.4 %; Eosinophils # 0.3 K/mcL (0.0-0.6); Eosinophils % 3.7 %; Hematocrit 36.7 % (35.3-44.9); Hemoglobin 11.7 g/dL (11.5-15.4); Immature Granulocytes % 0.3 % (0-4); Lymphocytes # 1.8 K/mcL (0.6-4.6); Lymphocytes % 25.8 %; Mean Corpuscular HGB Conc 31.9 g/dL (31.6-35.5); Mean Corpuscular Hemoglobin 30.3 pg (28.0-33.3); Mean Corpuscular Volume 95.1 fL (83.0-100.0); Mean Platelet Volume 10.1 fL (9.4-12.4); Monocytes # 0.4 K/mcL (0.0-1.3); Monocytes % 6.3 %; Neutrophils # 4.4 K/mcL (1.6-8.9); Platelet Count 245 K/mcL (140-400); Red Blood Count 3.86 M/mcL (3.82-4.97); Red Cell Distribution Width 12.5 % (11.5-14.5); Segmented Neutrophils % 63.5 %
[2020-12-28 04:49] LABS: Alanine Aminotransferase 26 Units/L (7-52); Albumin 3.7 g/dL (3.5-5.7); Albumin/Globulin Ratio 1.4 (1.1-2.2); Alkaline Phosphatase 95 Units/L (34-104); Aspartate Amino Transferase 19 Units/L (13-39); BUN/Creatinine Ratio 18 (6-26); Bilirubin,Direct 0.2 mg/dL (0.0-0.2); Bilirubin,Indirect 0.7 mg/dL (0.0-1.0); Bilirubin,Total 0.9 mg/dL (0.3-1.0); Blood Urea Nitrogen 12 mg/dL (6-20); Calcium 9.1 mg/dL (8.6-10.3); Carbon Dioxide 28 mEq/L (23-29); Chloride 106 mEq/L (98-107); Globulin 2.6 g/dL (2.4-3.5); Glucose 105 mg/dL (70-105); Magnesium 1.8 mg/dL (1.6-2.6); Osmolality,Calculated 292 (280-300); Potassium 3.7 mEq/L (3.5-5.1); Sodium 141 mEq/L (136-145); Total Protein 6.3 g/dL (6.4-8.9); eGFR For African Americans > 60 (> 60); eGFR For Non-African Americans > 60 (> 60)
[2020-12-28 05:01] LABS: Thyroid Stimulating Hormone 2.384 mcIU/mL (0.340-5.600)
[2020-12-28] MEDS: *HR* LORazepam 1 MG TABLET PO PRN (05:28)
[2020-12-28] MEDS ORDERED: Multivit/Ca/Min/Fe/FA 1 TAB TABLET PO SCH (09:00)
[2020-12-28] MEDS ORDERED: Pantoprazole 40 MG VIAL IVP SCH (09:00)
[2020-12-28] MEDS ORDERED: hydroCHLOROthiazide 25 MG TABLET PO SCH (09:00)
[2020-12-28] MEDS ORDERED: Ascorbic Acid 500 MG TABLET PO SCH (09:00)
[2020-12-28] MEDS: Doxycycline 100 MG in 0.9 % Sodium Chloride Mini Bag 100 ML IVPB SCH (09:43)
[2020-12-28] MEDS: Lactobacillus 1 EACH CAP.SPRINK PO SCH (09:43)
[2020-12-28] MEDS: levoFLOXacin 750 MG/150 ML 750 MG/150 ML BAG IVPB SCH (09:45)
[2020-12-28 15:39] VITALS: BP 167/91; PULSE 65; TEMP 97.9; O2SAT 97
[2020-12-29] MEDS ORDERED: Loratadine 10 MG TABLET PO SCH (09:00)
[2020-12-29 22:59] LABS: Influenza A PCR Body Fluid NOT DETECTED; Influenza B PCR Body Fluid NOT DETECTED; RVP Body Fluid Source BAL
[2020-12-30 10:20] LABS: RSV PCR Body Fluid NOT DETECTED
== END 2020-12-28 18:14 | disposition home or self-care (01) | DRG 871 ==
LOC: 3ANU 08:19 → EMEROOARM 08:19 → SUATTDRO 15:31 → 3ANU 16:40
PROVIDERS: ADMIT Internal Medicine; ATTEND Pharmacist

== ENCOUNTER 2021-02-18 08:17 | Inpatient (IN) ==
[2021-02-18] MEDS ORDERED: Aspirin 81 MG TAB.CHEW PO ONE (08:51)
[2021-02-18] MEDS ORDERED: DilTIAZem 50 MG/50 ML IV.SOLN IVC SCH (09:00)
[2021-02-18 09:26] LABS: INR 3.7; Prothrombin Time 41.3 Seconds (9.4-12.1)
[2021-02-18 09:29] LABS: Activated Partial Thrombo Time 65.2 Seconds (26.0-36.0)
[2021-02-18 09:33] LABS: Basophils # 0.1 K/mcL (0.0-0.2); Basophils % 0.5 %; Eosinophils # 0.1 K/mcL (0.0-0.6); Eosinophils % 0.9 %; Hematocrit 40.3 % (35.3-44.9); Hemoglobin 13.6 g/dL (11.5-15.4); Immature Granulocytes % 0.3 % (0-4); Lymphocytes # 2.1 K/mcL (0.6-4.6); Lymphocytes % 20.3 %; Mean Corpuscular HGB Conc 33.7 g/dL (31.6-35.5); Mean Corpuscular Volume 91.8 fL (83.0-100.0); Mean Platelet Volume 10.7 fL (9.4-12.4); Monocytes # 0.5 K/mcL (0.0-1.3); Neutrophils # 7.5 K/mcL (1.6-8.9); Platelet Count 323 K/mcL (140-400); Red Blood Count 4.39 M/mcL (3.82-4.97); Red Cell Distribution Width 12.6 % (11.5-14.5); White Blood Count 10.2 K/mcL (4.3-11.1)
[2021-02-18 09:35] LABS: Alanine Aminotransferase 24 Units/L (7-52); Albumin/Globulin Ratio 1.3 (1.1-2.2); Alkaline Phosphatase 117 Units/L (34-104); Aspartate Amino Transferase 17 Units/L (13-39); BUN/Creatinine Ratio 22 (6-26); Bilirubin,Direct 0.2 mg/dL (0.0-0.2); Bilirubin,Indirect 0.9 mg/dL (0.0-1.0); Bilirubin,Total 1.1 mg/dL (0.3-1.0); Blood Urea Nitrogen 17 mg/dL (6-20); Calcium 9.2 mg/dL (8.6-10.3); Carbon Dioxide 27 mEq/L (23-29); Chloride 106 mEq/L (98-107); Glucose 124 mg/dL (70-105); Osmolality,Calculated 295 (280-300); Potassium 3.9 mEq/L (3.5-5.1); Sodium 141 mEq/L (136-145); Troponin I < 0.03 ng/mL (< 0.04); eGFR For African Americans > 60 (> 60); eGFR For Non-African Americans > 60 (> 60)
[2021-02-18 10:43] LABS: Bilirubin,Urine Negative (Negative); Blood,Urine Negative (Negative); Clarity,Urine Clear (Clear); Color,Urine Yellow (Yellow); Glucose,Urine (UA) Normal (Normal); Ketones,Urine Negative (Negative); Leukocyte Esterase,Urine Negative (Negative); Mucus,Urine Few per lpf (None-Few); Nitrite,Urine Negative (Negative); PH,Urine 6.5 pH Units (5.0-8.0); Protein,Urine 30 mg/dL (Neg-Trace); RBC,Urine 0-3 per hpf (0-3); Specific Gravity,Urine 1.022 (1.010-1.025); Squamous Epithelial Cell,Urine Few per hpf (None-Few); Urobilinogen,Urine Normal (Normal); WBC,Urine 0-3 per hpf (0-3)
[2021-02-18] MEDS ORDERED: Naloxone 0.4 MG/ML INJ IVP PRN (12:04)
[2021-02-18 13:54] LABS: Adenovirus Not Detected (Not Detect); Coronavirus 229E Not Detected (Not Detect); Coronavirus HKU1 Not Detected (Not Detect); Coronavirus NL63 Not Detected (Not Detect); Coronavirus OC43 Not Detected (Not Detect); Human Metapneumovirus Not Detected (Not Detect); SARS-CoV-2 Not Detected (Not Detect)
[2021-02-18 13:55] LABS: Bordetella Pertussis Not Detected (Not Detect); Chlamydophila pneumoniae Not Detected (Not Detect); Human Rhinovirus/Enterovirus Not Detected (Not Detect); Influenza A Subtype 2009 H1 Not Detected (Not Detect); Influenza B Not Detected (Not Detect); Mycoplasma pneumoniae Not Detected (Not Detect); Parainfluenza Virus 1 Not Detected (Not Detect); Parainfluenza Virus 2 Not Detected (Not Detect); Parainfluenza Virus 3 Not Detected (Not Detect); Parainfluenza Virus 4 Not Detected (Not Detect); Respiratory Syncytial Virus Not Detected (Not Detect)
[2021-02-18 16:21] LABS: Magnesium 1.9 mg/dL (1.6-2.6)
[2021-02-18] MEDS: carvediloL 25 MG TABLET PO SCH (16:37)
[2021-02-18] MEDS: Magnesium Oxide 400 MG TABLET PO SCH (16:37)
[2021-02-18] MEDS: Melatonin 3 MG TABLET PO SCH (20:29)
[2021-02-18] MEDS: *HR* LORazepam 1 MG TABLET PO PRN (20:30)
[2021-02-18] MEDS: *HR* Rivaroxaban 10 MG TABLET PO SCH (20:30)
[2021-02-19] MEDS ORDERED: traZODone 50 MG TABLET PO PRN (00:52)
[2021-02-19 08:00] LABS: Basophils % 0.5 %; Eosinophils # 0.1 K/mcL (0.0-0.6); Eosinophils % 1.3 %; Hematocrit 37.6 % (35.3-44.9); Hemoglobin 12.5 g/dL (11.5-15.4); Immature Granulocytes % 0.4 % (0-4); Lymphocytes # 2.1 K/mcL (0.6-4.6); Lymphocytes % 26.3 %; Mean Corpuscular HGB Conc 33.2 g/dL (31.6-35.5); Mean Corpuscular Hemoglobin 30.5 pg (28.0-33.3); Mean Corpuscular Volume 91.7 fL (83.0-100.0); Mean Platelet Volume 10.7 fL (9.4-12.4); Monocytes # 0.5 K/mcL (0.0-1.3); Monocytes % 5.9 %; Neutrophils # 5.2 K/mcL (1.6-8.9); Platelet Count 274 K/mcL (140-400); Red Cell Distribution Width 12.5 % (11.5-14.5); Segmented Neutrophils % 65.6 %; White Blood Count 7.9 K/mcL (4.3-11.1)
[2021-02-19 08:18] LABS: BUN/Creatinine Ratio 20 (6-26); Blood Urea Nitrogen 16 mg/dL (6-20); Carbon Dioxide 30 mEq/L (23-29); Chloride 102 mEq/L (98-107); Glucose 93 mg/dL (70-105); Osmolality,Calculated 291 (280-300); Potassium 3.2 mEq/L (3.5-5.1); Sodium 140 mEq/L (136-145); eGFR For African Americans > 60 (> 60); eGFR For Non-African Americans > 60 (> 60)
[2021-02-19] MEDS: carvediloL 25 MG TABLET PO SCH ×2 (09:00→17:25)
[2021-02-19] MEDS: Multivit/Ca/Min/Fe/FA 1 TAB TABLET PO SCH (09:00)
[2021-02-19] MEDS ORDERED: hydroCHLOROthiazide 25 MG TABLET PO SCH (09:00)
[2021-02-19] MEDS: lisinopriL 20 MG TABLET PO SCH ×2 (09:00→17:25)
[2021-02-19] MEDS: Ascorbic Acid 500 MG TABLET PO SCH (09:01)
[2021-02-19 13:27] LABS: Potassium 3.4 mEq/L (3.5-5.1)
[2021-02-19 13:33] LABS: Thyroid Stimulating Hormone 1.971 mcIU/mL (0.340-5.600)
[2021-02-19] MEDS: Magnesium Oxide 400 MG TABLET PO SCH (17:25)
[2021-02-19] MEDS: *HR* LORazepam 1 MG TABLET PO PRN (20:27)
[2021-02-19] MEDS: *HR* Rivaroxaban 10 MG TABLET PO SCH (20:27)
[2021-02-19] MEDS: Melatonin 3 MG TABLET PO SCH (20:27)
[2021-02-20 04:33] LABS: Basophils % 0.6 %; Eosinophils # 0.1 K/mcL (0.0-0.6); Eosinophils % 1.4 %; Hematocrit 37.5 % (35.3-44.9); Hemoglobin 12.7 g/dL (11.5-15.4); Immature Granulocytes % 0.1 % (0-4); Lymphocytes % 28.5 %; Mean Corpuscular HGB Conc 33.9 g/dL (31.6-35.5); Mean Corpuscular Hemoglobin 30.7 pg (28.0-33.3); Mean Corpuscular Volume 90.6 fL (83.0-100.0); Mean Platelet Volume 10.4 fL (9.4-12.4); Monocytes # 0.5 K/mcL (0.0-1.3); Monocytes % 7.5 %; Neutrophils # 4.4 K/mcL (1.6-8.9); Platelet Count 298 K/mcL (140-400); Red Blood Count 4.14 M/mcL (3.82-4.97); Red Cell Distribution Width 12.6 % (11.5-14.5); Segmented Neutrophils % 61.9 %; White Blood Count 7.2 K/mcL (4.3-11.1)
[2021-02-20 04:51] LABS: BUN/Creatinine Ratio 24 (6-26); Blood Urea Nitrogen 18 mg/dL (6-20); Carbon Dioxide 26 mEq/L (23-29); Chloride 107 mEq/L (98-107); Glucose 116 mg/dL (70-105); Osmolality,Calculated 297 (280-300); Potassium 3.7 mEq/L (3.5-5.1); Sodium 142 mEq/L (136-145); eGFR For African Americans > 60 (> 60); eGFR For Non-African Americans > 60 (> 60)
[2021-02-20] MEDS: Multivit/Ca/Min/Fe/FA 1 TAB TABLET PO SCH (07:43)
[2021-02-20] MEDS: Ascorbic Acid 500 MG TABLET PO SCH (07:43)
[2021-02-20] MEDS: carvediloL 25 MG TABLET PO SCH ×2 (07:43→17:15)
[2021-02-20] MEDS: lisinopriL 20 MG TABLET PO SCH (17:15)
[2021-02-20] MEDS: Magnesium Oxide 400 MG TABLET PO SCH (17:15)
[2021-02-20] MEDS: *HR* Rivaroxaban 10 MG TABLET PO SCH (20:47)
[2021-02-20] MEDS: Melatonin 3 MG TABLET PO SCH (20:48)
[2021-02-20] MEDS: *HR* LORazepam 1 MG TABLET PO PRN (20:50)
[2021-02-20 23:03] VITALS: TEMP 98.2
[2021-02-21 06:54] LABS: Basophils % 0.6 %; Eosinophils # 0.1 K/mcL (0.0-0.6); Eosinophils % 1.9 %; Hematocrit 37.4 % (35.3-44.9); Hemoglobin 12.2 g/dL (11.5-15.4); Immature Granulocytes % 0.3 % (0-4); Lymphocytes # 1.3 K/mcL (0.6-4.6); Lymphocytes % 19.3 %; Mean Corpuscular HGB Conc 32.6 g/dL (31.6-35.5); Mean Corpuscular Volume 92.1 fL (83.0-100.0); Mean Platelet Volume 10.3 fL (9.4-12.4); Monocytes # 0.4 K/mcL (0.0-1.3); Monocytes % 6.3 %; Platelet Count 245 K/mcL (140-400); Red Blood Count 4.06 M/mcL (3.82-4.97); Red Cell Distribution Width 12.8 % (11.5-14.5); Segmented Neutrophils % 71.6 %
[2021-02-21 07:22] LABS: BUN/Creatinine Ratio 20 (6-26); Blood Urea Nitrogen 17 mg/dL (6-20); Calcium 8.8 mg/dL (8.6-10.3); Carbon Dioxide 27 mEq/L (23-29); Chloride 105 mEq/L (98-107); Glucose 98 mg/dL (70-105); Osmolality,Calculated 292 (280-300); Potassium 3.7 mEq/L (3.5-5.1); Sodium 140 mEq/L (136-145); eGFR For African Americans > 60 (> 60); eGFR For Non-African Americans > 60 (> 60)
[2021-02-21] MEDS: Ascorbic Acid 500 MG TABLET PO SCH (08:24)
[2021-02-21] MEDS: carvediloL 25 MG TABLET PO SCH (08:24)
[2021-02-21] MEDS: Multivit/Ca/Min/Fe/FA 1 TAB TABLET PO SCH (08:24)
[2021-02-21] MEDS ORDERED: *HR* FentaNYL (PF) 250 MCG/5 ML VIAL ONE (11:28)
[2021-02-21] MEDS ORDERED: *HR* Midazolam HCl 5 MG/5 ML VIAL IVP ONE ×2 (11:29→11:49)
[2021-02-21] MEDS ORDERED: 0.9 % Sodium Chloride 1,000 ML ONE (11:29)
[2021-02-21 15:29] VITALS: BP 101/60; PULSE 57; O2SAT 94
== END 2021-02-21 17:54 | disposition home or self-care (01) | DRG 310 ==
LOC: 3BNU 08:17 → EMEROOARM 08:17 → 3BNU 13:47
PROVIDERS: ADMIT Internal Medicine; ATTEND Internal Medicine

== ENCOUNTER 2021-05-13 09:00 | Observation (INO) ==
[2021-05-13 11:50] LABS: Basophils % 0.5 %; Eosinophils # 0.1 K/mcL (0.0-0.6); Eosinophils % 1.1 %; Hematocrit 37.7 % (35.3-44.9); Hemoglobin 12.3 g/dL (11.5-15.4); Immature Granulocytes % 0.2 % (0-4); Lymphocytes # 1.5 K/mcL (0.6-4.6); Lymphocytes % 23.5 %; Mean Corpuscular HGB Conc 32.6 g/dL (31.6-35.5); Mean Corpuscular Hemoglobin 29.9 pg (28.0-33.3); Mean Corpuscular Volume 91.7 fL (83.0-100.0); Mean Platelet Volume 10.5 fL (9.4-12.4); Monocytes # 0.4 K/mcL (0.0-1.3); Monocytes % 6.2 %; Neutrophils # 4.5 K/mcL (1.6-8.9); Platelet Count 238 K/mcL (140-400); Red Blood Count 4.11 M/mcL (3.82-4.97); Red Cell Distribution Width 13.6 % (11.5-14.5); Segmented Neutrophils % 68.5 %; White Blood Count 6.5 K/mcL (4.3-11.1)
[2021-05-13 12:06] LABS: BUN/Creatinine Ratio 15 (6-26); Blood Urea Nitrogen 12 mg/dL (6-20); Calcium 9.7 mg/dL (8.6-10.3); Carbon Dioxide 31 mEq/L (23-29); Chloride 103 mEq/L (98-107); Glucose 101 mg/dL (70-105); Magnesium 1.8 mg/dL (1.6-2.6); Osmolality,Calculated 292 (280-300); Potassium 3.4 mEq/L (3.5-5.1); Sodium 141 mEq/L (136-145); eGFR For African Americans > 60 (> 60); eGFR For Non-African Americans > 60 (> 60)
[2021-05-13] MEDS: Cholecalciferol (D-3) 1,000 UNIT (25MCG) TABLET PO SCH (16:54)
[2021-05-13] MEDS: lisinopriL 20 MG TABLET PO SCH (16:54)
[2021-05-13] MEDS: carvediloL 25 MG TABLET PO SCH (16:54)
[2021-05-13] MEDS: Zinc Sulfate 220 MG CAPSULE PO SCH (16:54)
[2021-05-13] MEDS: *HR* LORazepam 0.5 MG TABLET PO PRN (19:51)
[2021-05-13] MEDS: *HR* Rivaroxaban 10 MG TABLET PO SCH (19:51)
[2021-05-14 06:16] LABS: BUN/Creatinine Ratio 14 (6-26); Blood Urea Nitrogen 12 mg/dL (6-20); Calcium 9.3 mg/dL (8.6-10.3); Carbon Dioxide 30 mEq/L (23-29); Chloride 101 mEq/L (98-107); Glucose 97 mg/dL (70-105); Osmolality,Calculated 292 (280-300); Potassium 3.9 mEq/L (3.5-5.1); Sodium 141 mEq/L (136-145); eGFR For African Americans > 60 (> 60); eGFR For Non-African Americans > 60 (> 60)
[2021-05-14] MEDS: Multivit/Ca/Min/Fe/FA 1 TAB TABLET PO SCH (07:49)
[2021-05-14] MEDS: hydroCHLOROthiazide 25 MG TABLET PO SCH (07:50)
[2021-05-14] MEDS: carvediloL 25 MG TABLET PO SCH (07:50)
[2021-05-14] MEDS ORDERED: carvediloL 6.25 MG TABLET PO SCH (17:00)
[2021-05-14] MEDS: lisinopriL 20 MG TABLET PO SCH (17:13)
[2021-05-14] MEDS: Cholecalciferol (D-3) 1,000 UNIT (25MCG) TABLET PO SCH (17:13)
[2021-05-14] MEDS: Zinc Sulfate 220 MG CAPSULE PO SCH (17:13)
[2021-05-14] MEDS: *HR* Rivaroxaban 10 MG TABLET PO SCH (20:08)
[2021-05-14] MEDS: *HR* LORazepam 0.5 MG TABLET PO PRN (20:08)
[2021-05-15 07:42] LABS: BUN/Creatinine Ratio 24 (6-26); Blood Urea Nitrogen 19 mg/dL (6-20); Calcium 9.5 mg/dL (8.6-10.3); Carbon Dioxide 28 mEq/L (23-29); Chloride 104 mEq/L (98-107); Glucose 99 mg/dL (70-105); Osmolality,Calculated 292 (280-300); Potassium 3.6 mEq/L (3.5-5.1); Sodium 140 mEq/L (136-145); eGFR For African Americans > 60 (> 60); eGFR For Non-African Americans > 60 (> 60)
[2021-05-15] MEDS ORDERED: amLODIPine 5 MG TABLET PO SCH (09:00)
[2021-05-15] MEDS ORDERED: Spironolactone 12.5 MG TABLET PO SCH (09:00)
[2021-05-15] MEDS: Multivit/Ca/Min/Fe/FA 1 TAB TABLET PO SCH (09:15)
[2021-05-15] MEDS: hydroCHLOROthiazide 25 MG TABLET PO SCH (09:15)
[2021-05-15 15:30] VITALS: BP 172/84; PULSE 55; TEMP 97.7; O2SAT 97
== END 2021-05-15 17:34 | disposition home or self-care (01) ==
LOC: 3BNU
PROVIDERS: ADMIT Internal Medicine Clinical Cardiac Electrophysiology; ATTEND Internal Medicine Clinical Cardiac Electrophysiology

== ENCOUNTER 2021-07-01 08:15 | Observation (INO) ==
[2021-07-01] MEDS ORDERED: Aspirin 81 MG TAB.CHEW PO ONE (08:21)
[2021-07-01 08:50] LABS: Basophils % 0.5 %; Eosinophils # 0.2 K/mcL (0.0-0.6); Hematocrit 41.3 % (35.3-44.9); Hemoglobin 14.5 g/dL (11.5-15.4); Immature Granulocytes % 0.3 % (0-4); Lymphocytes # 1.9 K/mcL (0.6-4.6); Lymphocytes % 23.5 %; Mean Corpuscular HGB Conc 35.1 g/dL (31.6-35.5); Mean Corpuscular Hemoglobin 31.3 pg (28.0-33.3); Mean Platelet Volume 10.1 fL (9.4-12.4); Monocytes # 0.6 K/mcL (0.0-1.3); Monocytes % 8.1 %; Neutrophils # 5.2 K/mcL (1.6-8.9); Platelet Count 267 K/mcL (140-400); Red Blood Count 4.64 M/mcL (3.82-4.97); Red Cell Distribution Width 13.2 % (11.5-14.5); Segmented Neutrophils % 65.6 %; White Blood Count 7.9 K/mcL (4.3-11.1)
[2021-07-01 09:16] LABS: BUN/Creatinine Ratio 18 (6-26); Blood Urea Nitrogen 15 mg/dL (6-20); Calcium 9.7 mg/dL (8.6-10.3); Carbon Dioxide 26 mEq/L (23-29); Chloride 104 mEq/L (98-107); Glucose 125 mg/dL (70-105); Osmolality,Calculated 290 (280-300); Potassium 3.9 mEq/L (3.5-5.1); Sodium 139 mEq/L (136-145); Troponin I 0.03 ng/mL (< 0.04); eGFR For African Americans > 60 (> 60); eGFR For Non-African Americans > 60 (> 60)
[2021-07-01] MEDS ORDERED: *HR* HYDROcodone/Acet 5/325 mg TABLET PO PRN (10:05)
[2021-07-01] MEDS ORDERED: Ondansetron 4 MG/2 ML VIAL IVP PRN (10:05)
[2021-07-01] MEDS ORDERED: Naloxone 0.4 MG/ML INJ IVP PRN (10:05)
[2021-07-01] MEDS ORDERED: Acetaminophen 325 MG TABLET PO PRN (10:05)
[2021-07-01] MEDS ORDERED: *HR* OxyCODONE Immed Rel 5 MG TABLET PO PRN (10:05)
[2021-07-01] MEDS ORDERED: *HR* LORazepam 1 MG TABLET PO PRN (12:30)
[2021-07-01] MEDS: *HR* Rivaroxaban 10 MG TABLET PO SCH (18:00)
[2021-07-01] MEDS: lisinopriL 20 MG TABLET PO SCH (18:00)
[2021-07-01] MEDS: Zinc Sulfate 220 MG CAPSULE PO SCH (18:01)
[2021-07-01] MEDS: Cholecalciferol (D-3) 1,000 UNIT (25MCG) TABLET PO SCH (21:23)
[2021-07-02 05:34] LABS: Basophils % 0.5 %; Eosinophils # 0.2 K/mcL (0.0-0.6); Eosinophils % 2.5 %; Hematocrit 40.5 % (35.3-44.9); Hemoglobin 14.1 g/dL (11.5-15.4); Immature Granulocytes % 0.4 % (0-4); Lymphocytes % 24.1 %; Mean Corpuscular HGB Conc 34.8 g/dL (31.6-35.5); Mean Corpuscular Hemoglobin 30.9 pg (28.0-33.3); Mean Corpuscular Volume 88.8 fL (83.0-100.0); Mean Platelet Volume 10.2 fL (9.4-12.4); Monocytes # 0.6 K/mcL (0.0-1.3); Monocytes % 7.6 %; Neutrophils # 5.5 K/mcL (1.6-8.9); Platelet Count 265 K/mcL (140-400); Red Blood Count 4.56 M/mcL (3.82-4.97); Red Cell Distribution Width 13.3 % (11.5-14.5); Segmented Neutrophils % 64.9 %; White Blood Count 8.4 K/mcL (4.3-11.1)
[2021-07-02 05:47] LABS: BUN/Creatinine Ratio 22 (6-26); Blood Urea Nitrogen 16 mg/dL (6-20); Calcium 9.4 mg/dL (8.6-10.3); Carbon Dioxide 27 mEq/L (23-29); Chloride 103 mEq/L (98-107); Glucose 125 mg/dL (70-105); Magnesium 1.9 mg/dL (1.6-2.6); Osmolality,Calculated 289 (280-300); Potassium 3.6 mEq/L (3.5-5.1); Sodium 138 mEq/L (136-145); eGFR For African Americans > 60 (> 60); eGFR For Non-African Americans > 60 (> 60)
[2021-07-02] MEDS: Cholecalciferol (D-3) 1,000 UNIT (25MCG) TABLET PO SCH (08:03)
[2021-07-02] MEDS ORDERED: Spironolactone 12.5 MG TABLET PO SCH (09:00)
[2021-07-02] MEDS ORDERED: ACITRETIN 10 MG PO SCH (09:00)
[2021-07-02] MEDS ORDERED: Multivit/Ca/Min/Fe/FA 1 TAB TABLET PO SCH (09:00)
[2021-07-02] MEDS ORDERED: 0.9 % Sodium Chloride 500 ML IVC ONE (11:13)
[2021-07-02] MEDS: *HR* Midazolam HCl 5 MG/5 ML VIAL IVP PRN ×4 (11:40→11:53)
[2021-07-02] MEDS: *HR* FentaNYL (PF) 100 MCG/2 ML VIAL IVP PRN ×4 (11:40→11:53)
[2021-07-02] MEDS: *HR* Rivaroxaban 10 MG TABLET PO SCH (18:04)
[2021-07-02] MEDS: lisinopriL 20 MG TABLET PO SCH (18:04)
[2021-07-02] MEDS: Zinc Sulfate 220 MG CAPSULE PO SCH (18:04)
[2021-07-02 20:05] VITALS: BP 139/78; PULSE 61; TEMP 97.4; O2SAT 98
== END 2021-07-02 20:40 | disposition home or self-care (01) ==
LOC: 3BNU 08:15 → EMEROOARM 08:15 → SUATTDRO 10:23 → 3BNU 11:29
PROVIDERS: ADMIT Pharmacist; ATTEND Internal Medicine